=== PATIENT | female | born 1980 | race Caucasian/White ===

== ENCOUNTER 2021-06-02 19:08 | Emergency (ER) | payer OTHER ==
[~2021-06-02] VITALS: Ht 157.5 cm; Wt 68.0 kg
[2021-06-02 19:19] VITALS: BP 150/88
[2021-06-02] MEDS ORDERED: IBUP-2213 PO (20:37)
[2021-06-02 20:50] VITALS: BP 148/90
== END 2021-06-02 20:50 | disposition home or self-care (01) ==
LOC: MED 19:08
DX: R07.89 Other chest pain (principal); M54.9 Dorsalgia, unspecified; R11.0 Nausea; Z88.8 Allergy status to other drugs, medicaments and biological substances
CPT/HCPCS: 99282

== ENCOUNTER 2023-09-22 08:12 | Emergency (ER) | payer OTHER ==
[~2023-09-22] VITALS: Ht 157.5 cm; Wt 52.2 kg
[~2023-09-22 08:12] MED LIST: IBUP-2213 PO
[2023-09-22 08:27] VITALS: BP 141/85; PULSE 70; RESP 18; TEMP 98.3; O2SAT 100
[2023-09-22] MEDS: NACL 0.9% 1,000 ML IV ONE (09:23)
[2023-09-22] MEDS: ONDANSETRON 4 MG/2 ML VIAL IVP ONE (09:25)
[2023-09-22] MEDS: LORazepam 1 MG TAB PO ONE (09:29)
[2023-09-22 09:54] LABS: EOSINOPHILS % (AUTO) 1.1 % (0.0-4.0); HEMATOCRIT 31.2 % (36-48); LYMPHOCYTES # (AUTO) 1.2 K/uL (2.5-16.5); LYMPHOCYTES % (AUTO) 25.8 % (20.5-51.1); MEAN CORPUSCULAR HEMOGLOBIN 24 pg (27-31); MEAN CORPUSCULAR HGB CONC 32 g/dL (33-37); MEAN CORPUSCULAR VOLUME 76.3 fL (80-94); MONOCYTES # (AUTO) 0.4 K/uL (0.8-1.0); MONOCYTES % (AUTO) 8.1 % (1.7-9.3); NEUTROPHILS # (AUTO) 2.9 K/uL (1.8-7.7); PLATELET COUNT (AUTO) 264 K/uL (140-450); RED CELL DISTRIBUTION WIDTH 19.2 % (11.6-13.7); WHITE BLOOD COUNT (AUTO) 4.5 K/uL (4.8-10.8)
[2023-09-22 10:08] LABS: ANION GAP 11.8 (8-16); CALCIUM 8.7 mg/dL (8.5-10.1); CARBON DIOXIDE 27.5 mmol/L (21-32); CREATININE 0.7 mg/dL (0.6-1.3); POTASSIUM 4.3 mmol/L (3.5-5.1)
[2023-09-22 10:13] LABS: ALANINE AMINOTRANSFERASE 11 U/L (12-78); ALBUMIN 3.9 g/dL (3.4-5.0); ALKALINE PHOSPHATASE 49 U/L (50-136); ASPARTATE AMINOTRANSFERASE 15 U/L (15-37); BILIRUBIN,DIRECT 0.1 mg/dL (0.0-0.3); TOTAL BILIRUBIN 0.4 mg/dL (0.0-1.0); TOTAL PROTEIN, SERUM 7.1 g/dL (6.4-8.2)
[2023-09-22] MEDS ORDERED: FERR325E14 PO (11:04)
[2023-09-22 11:25] VITALS: BP 127/89; PULSE 85; RESP 16; O2SAT 100
== END 2023-09-22 11:25 | disposition home or self-care (01) ==
LOC: MED 08:12
DX: R42 Dizziness and giddiness (principal); R11.0 Nausea; D64.9 Anemia, unspecified; Z90.49 Acquired absence of other specified parts of digestive tract; Z79.899 Other long term (current) drug therapy; Z88.8 Allergy status to other drugs, medicaments and biological substances
CPT/HCPCS: 36415; 80048; 80076; 81025; 84443; 84484; 85025; 93005; 96361; 96374; 99284; J2405; J7030

== ENCOUNTER 2024-04-06 23:52 | Emergency (ER) | payer OTHER ==
[~2024-04-06] VITALS: Ht 160 cm; Wt 61.2 kg
[~2024-04-06 23:52] MED LIST changes: +FERR325E14 PO
[2024-04-07 00:33] VITALS: BP 139/86; PULSE 84; RESP 18; TEMP 98.3; O2SAT 99
[2024-04-07 03:30] VITALS: BP 130/98; PULSE 84; RESP 20; O2SAT 98
[2024-04-07] MEDS: HYDROcodone/APAP 5/325 MG 1 TAB TAB PO ONE (03:39)
[2024-04-07] MEDS ORDERED: HYDR25SU91 RC (04:26)
== END 2024-04-07 04:30 | disposition home or self-care (01) ==
LOC: MED 23:52
DX: K64.4 Residual hemorrhoidal skin tags (principal); Z79.899 Other long term (current) drug therapy; Z88.8 Allergy status to other drugs, medicaments and biological substances
CPT/HCPCS: 99283